=== PATIENT | female | born 1985 ===

== ENCOUNTER 2018-03-31 02:36 | Day surgery (SDC) | payer OTHER ==
[~2018-03-31] VITALS: Ht 167.6 cm; Wt 73.5 kg
[~2018-03-31 02:36] MED LIST: GOLYTE PO; NORG1TAB16 PO
[2018-03-31] MEDS ORDERED: PROPOFOL EMUL(*) 10MG/ML 20 ML 20 ML ONE (07:20)
[2018-03-31 09:10] VITALS: BP 121/73
[2018-03-31] MEDS ORDERED: LIDOCAINE/SOD BICARB 8.4% SYR ID ONE (09:30)
[2018-03-31] MEDS ORDERED: NORMOSOL R SOLN(*) 1000 ML BAG 1,000 ML IV PRN (09:30)
[2018-03-31 11:18] VITALS: BP 91/45
--- NOTE | 2018-03-31 11:24 | Short(Outpt) Discharge Summary ---
Discharge Summary Reason for Hosp/Final Diag: (1) Diverticulitis large intestine Status: Resolved Hospital Course & Plan: Colonoscopy completed without problems. Departure Discharge to: Home, Self Care Discharge Instructions Home Meds Active Scripts Peg/Electrolytes (GOLYTELY SOLUTION) 4,000 Ml Soln, 1 GAL PO ONCE, #1 GAL 0 Refills Prov:ELMIRA SHIN MD 02/09/18 Reported Medications Norgestimate-Ethinyl Estradiol (MONO-LINYAH) 1 Each Tablet, 1 TAB PO QDAY 02/08/18 Diet: Regular Activity: As Tolerated Special Instructions: Your colonoscopy was completed without any problems and your prep was excellent (Good Job!!). I didn't find any polyps, cancers, or inflammation in your colon. You did have a few diverticuli in your sigmoid colon but these weren't inflamed. I recommend that you continue taking your daily fiber supplement and try to include a serving of fruit with breakfast and vegetables with lunch and dinner, or eat fruit and veggies throughout the day if you don't eat organized meals. Please call my office at [phone] if you have continued abdominal or bowel movement issues and you would like further help. Problem Qualifiers (1) Diverticulitis large intestine: Diverticulitis bleeding: without bleeding Diverticulitis complication: without perforation or abscess Qualified Codes: K57.32 - Diverticulitis of large intestine without perforation or abscess without bleeding ELMIRA SHIN MD Mar 31, 2018 11:24
[2018-03-31 11:30] VITALS: BP 108/69
[2018-03-31 11:39] VITALS: BP 114/75
[2018-03-31 11:41] VITALS: BP 124/84
[2018-03-31 11:42] VITALS: BP 106/77
== END 2018-03-31 12:10 | disposition home or self-care (01) ==
LOC: OR 02:36
PROVIDERS: ATTEND Surgery
DX: K59.00 Constipation, unspecified (principal); R10.9 Unspecified abdominal pain
CPT/HCPCS: 00811; 45378; 81025; J2704

== ENCOUNTER → 2018-07-28 | Outpatient (CLI) | payer OTHER ==
[~2018-07-28] MED LIST changes: +LORA-629 PO
== END ==
LOC: LAB 13:24
PROVIDERS: ATTEND Obstetrics & Gynecology
DX: R35.0 Frequency of micturition (principal)
CPT/HCPCS: 81001; 87088

== ENCOUNTER → 2018-08-05 | Outpatient (CLI) | payer OTHER ==
--- NOTE | 2018-08-05 10:20 | RADIOLOGY IMAGING REPORT ---
FACILITY: [facility] - [place] PATIENT NAME: Mercedes Smith : 1985 MR: [id number] V: [id number] EXAM DATE: ORDERING PHYSICIAN: VIRGINIA ROBINS TECHNOLOGIST: Location: [facility] [place] Patient: Mercedes Smith : 1985 Visit/Account:[id number] Date of Sevice: 08/05/2018 THYROID HISTORY: Enlarged thyroid gland, elevated TSH COMPARISON: None. FINDINGS: Thyroid size: Within normal limits Right lobe: 4.1 x 1.2 x 1.5 cm Left lobe: 4.3 x 1.1 x 1.6 cm Isthmus: 2 mm Thyroid nodules: Right lobe: Homogeneous without nodule Left lobe: Within the medial aspect of the lower lobe, there is a mixed echogenic, vascular michelle id nodule that has internal microcalcifications. This measures 1.3 x 0.8 x 0.6 cm. Isthmus: None discrete. Thyroid vascularity: Within normal limits. IMPRESSION: 1. Within the medial aspect of the left lower lobe lateral left gland, there is a 1.3 cm solid nodul e. This has internal microcalcifications and is high suspicion by MESSI criteria. This requires tissu e sampling. Report Dictated By: Shayne Weston MD at 08/05/2018 10:08 AM Report E-Signed By: Shayne Weston MD at 08/05/2018 10:16 AM WSN:[id number]
== END ==
LOC: US 02:16
PROVIDERS: ATTEND Obstetrics & Gynecology
DX: E04.1 Nontoxic single thyroid nodule (principal)
CPT/HCPCS: 76536

== ENCOUNTER → 2018-10-06 | Outpatient (CLI) | payer OTHER | LOC: LAB 14:11 | PROVIDERS: ATTEND Otolaryngology | DX: R20.2 Paresthesia of skin (principal) | CPT/HCPCS: 36415; 82310 ==

== ENCOUNTER → 2018-10-08 | Outpatient (CLI) | payer OTHER | LOC: LAB 09:38 | PROVIDERS: ATTEND Nurse Practitioner Primary Care | DX: Z02.9 Encounter for administrative examinations, unspecified (principal) ==

== ENCOUNTER → 2018-10-08 | Outpatient (CLI) | payer OTHER ==
[2018-10-08 10:03] LABS: PLATELET COUNT, AUTOMATED 277 K/uL (150-450)
== END ==
LOC: LAB 09:43
PROVIDERS: ATTEND Nurse Practitioner Primary Care
DX: G62.9 Polyneuropathy, unspecified (principal)
CPT/HCPCS: 36415; 82040; 82247; 82310; 82374; 82435; 82565; 82607; 82746; 82947; 83735; 84075; 84132; 84155; 84295; 84439; 84443; 84450; 84460; 84520; 85025

== ENCOUNTER → 2018-10-20 | Outpatient (CLI) | payer OTHER ==
[~2018-10-20] MED LIST changes: +MULT-1335 PO
== END ==
LOC: LAB 11:43
PROVIDERS: ATTEND Emergency Medicine
DX: R53.83 Other fatigue (principal)
CPT/HCPCS: 36415; 82306; 82310; 82374; 82435; 82565; 82728; 82784; 82947; 83516; 83540; 83550; 83735; 83921; 84132; 84295; 84520; 85379; 87338